=== PATIENT | female | born 2000 | race Caucasian/White ===

== ENCOUNTER 2024-01-30 15:42 | Inpatient (IN) | payer BC, SELFPAY ==
--- NOTE | 2024-01-29 10:36 | ED.GENMED ---
ED Provider Triage
<Tushar Wolf PA-C - Last Filed: 01/29/24 14:43>
-
Patient seen by provider in Triage?: Seen in Triage
Attestation: A medical screening examination has been initiated by a qualified medical provider. Based on the assessment performed at this time, it has been determined that an emergent medical condition may exist and the patient has been informed
that further medical evaluation and possible additional diagnostic testing may be needed.
HPI: 23-year-old female presenting to the emergency department for evaluation of 1 to 2 months of gradually worsening abdominal pain, worse with food consumption stating pain will usually start minutes afterwards described to be a cramping sensation
across her abdomen radiating up through the right side of her abdomen accompanied with some nausea. [place] or fatty foods seem to be a little bit worse. Does also note some diarrhea with this. Has yet to have any examination or workup. Labs and
ultrasound of the abdomen ordered. Patient otherwise stable.
GENERAL: Alert , in no apparent distress
EYE: No visual abnormalities.
NECK: Trachea midline
ENT: No visible abnormalities.
LUNGS: No acute respiratory distress
NEUROLOGICAL: Alert and oriented
SKIN: Skin intact. No visible changes.
MUSCULOSKELETAL: Moving extremities normally
PSYCH: Normal and appropriate interaction.
This is a medical evaluation conducted in person to initiate diagnostic evaluation and provide initial therapeutics. Please see further documentation by the treating clinician.
History of Present Illness
<Tushar Wolf PA-C - Last Filed: 01/29/24 14:43>
General
Chief Complaint: Abdominal Pain
Time Seen by Provider: 01/29/24 11:36
<Tyler Reddy MD - Last Filed: 01/29/24 14:58>
General
Source: patient and family (Mother)
Exam Limitations: none
Nursing documentation reviewed up to this point in time: agreed with
History of Present Illness
History of Present Illness:
23-year-old female with no reported chronic medical issues presents to the emergency room with her mother for evaluation of abdominal pain. Patient reports onset of symptoms about a month ago and they have been intermittent since that time but she
says essentially daily. She reports pain is triggered by meals and then will last for hours at a time before resolving. She reports pain starts in the epigastrium and radiates towards the right upper quadrant and flank. Other than food no other
triggering factors noted. Occasional relief with Tums. She denies any vomiting but does have some nausea associated with it. She reports occasional loose stools. She says symptoms have been escalating and that last night pain was 10/10 and
unremitting and so she finally came to the ER to be evaluated. She says pain has essentially resolved by the time of my assessment. She has not had any urinary symptoms�denies dysuria, hematuria, change in urinary frequency. She denies any
vaginal bleeding or discharge. Last menstrual period ended 01/19/2024 and was normal. She denies similar symptoms in the past and denies surgical history. Mother is very concerned because patient has lost reportedly 10+ pounds over the past month
due to inability to eat because of symptoms.
Review of Systems
<Tyler Reddy MD - Last Filed: 01/29/24 14:58>
Review of Systems
All Other Systems: ROS reviewed and negative except as documented in HPI and ROS
Constitutional: Denies fever
Respiratory: Denies trouble breathing
Cardiac: Denies chest pain
ABD/GI: Reports abdominal pain, nausea and diarrhea; Denies vomiting
: Denies dysuria, frequency, flank pain or bleeding
Musculoskeletal: Denies neck pain or back pain
Neurological: Denies dizzy or headache
Phy Exam
<Tyler Reddy MD - Last Filed: 01/29/24 14:58>
Physical Exam
Physical Exam:
General: Awake, alert, oriented x3; no acute distress
Head: Normocephalic, atraumatic
Eyes: Conjunctiva normal, sclera anicteric
Throat: Airway intact, handling secretions
Neck: Trachea midline, supple without meningismus
Lungs: Clear to auscultation bilaterally, no wheezing, rales, rhonchi
Heart: Regular rate and rhythm, no murmurs, gallops, or rubs
Abd: Soft, non distended, minimally tender right upper quadrant
Neuro: No gross deficits
Extremities: Warm and well-perfused
Scores
<Tyler Reddy MD - Last Filed: 01/29/24 14:58>
Heart Failure Risk
Heart Failure Risk Score: Not Applicable
Heart Score for Chest Pain Patients
STEMI patient?: Not applicable
Withdrawal Assessment of Alcohol
Withdrawal Assessment Completed?: Not applicable
Course
<Tushar Wolf PA-C - Last Filed: 01/29/24 14:43>
Orders/Labs/Results
Orders:
Orders
01/29/24 10:37
Test Result ONCE
US Abdomen Complete/Upper Urgent
Comment:
Reason For Exam: 1-2 months, abd pain, RUQ
01/29/24 10:45
Complete Blood Count/With Diff Urgent
Comprehensive Metabolic Panel Urgent
HCG, Serum Qualitative Screen Urgent
Lipase Urgent
01/29/24 11:09
Urinalysis Reflex To Culture Urgent
Date Specimen was Collected: 01/29/24
Time Specimen was Collected: 11:08
01/29/24 14:48
Mrcp Without MR [MR Mrcp Without] Routine
Comment:
Reason For Exam: RUQ pain, abnormal LFTs
Recent pill cam endoscopy?: No
01/29/24 14:51
Pantoprazole [Protonix IV] 40 mg IV NOW STA
Abnormal Lab Results
01/29/24
10:45
WBC 12.0 H 10^3/uL
(4.8-10.8)
RBC 4.16 L 10^6/uL
(4.20-5.40)
Absolute Neuts (auto) 9.0 H 10^3/uL
(1.4-6.5)
Absolute Monos (auto) 0.7 H 10^3/uL
(0.1-0.6)
Lymphocytes % 14.3 L %
(20.5-51.1)
AST 142 H U/L
(14-36)
ALT 141 H U/L
(0-35)
Alkaline Phosphatase 524 H U/L
(38-126)
01/29/24 10:45
01/29/24 10:45
Vital Signs
Initial and Last Documented VS:
Initial Vital Signs
Temp Pulse Resp BP Pulse Ox
36.8 C 88 16 130/93 100
01/29/24 10:37 01/29/24 10:37 01/29/24 10:37 01/29/24 10:37 01/29/24 10:37
Last Documented Vital Signs
Temp Pulse Resp BP Pulse Ox
36.8 C 63 18 100/51 99
01/29/24 14:30 01/29/24 14:30 01/29/24 14:30 01/29/24 14:30 01/29/24 14:30
<Tyler Reddy MD - Last Filed: 01/29/24 14:58>
Orders/Labs/Results
Orders:
Orders
01/29/24 10:37
Test Result ONCE
US Abdomen Complete/Upper Urgent
Comment:
Reason For Exam: 1-2 months, abd pain, RUQ
01/29/24 10:45
Complete Blood Count/With Diff Urgent
Comprehensive Metabolic Panel Urgent
HCG, Serum Qualitative Screen Urgent
Lipase Urgent
01/29/24 11:09
Urinalysis Reflex To Culture Urgent
Date Specimen was Collected: 01/29/24
Time Specimen was Collected: 11:08
01/29/24 14:48
Mrcp Without MR [MR Mrcp Without] Routine
Comment:
Reason For Exam: RUQ pain, abnormal LFTs
Recent pill cam endoscopy?: No
01/29/24 14:51
Pantoprazole [Protonix IV] 40 mg IV NOW STA
Abnormal Lab Results
01/29/24
10:45
WBC 12.0 H 10^3/uL
(4.8-10.8)
RBC 4.16 L 10^6/uL
(4.20-5.40)
Absolute Neuts (auto) 9.0 H 10^3/uL
(1.4-6.5)
Absolute Monos (auto) 0.7 H 10^3/uL
(0.1-0.6)
Lymphocytes % 14.3 L %
(20.5-51.1)
AST 142 H U/L
(14-36)
ALT 141 H U/L
(0-35)
Alkaline Phosphatase 524 H U/L
(38-126)
01/29/24 10:45
01/29/24 10:45
Vital Signs
Initial and Last Documented VS:
Initial Vital Signs
Temp Pulse Resp BP Pulse Ox
36.8 C 88 16 130/93 100
01/29/24 10:37 01/29/24 10:37 01/29/24 10:37 01/29/24 10:37 01/29/24 10:37
Last Documented Vital Signs
Temp Pulse Resp BP Pulse Ox
36.8 C 63 18 100/51 99
01/29/24 14:30 01/29/24 14:30 01/29/24 14:30 01/29/24 14:30 01/29/24 14:30
<Tyler Reddy MD - Last Filed: 01/29/24 14:58>
MDM/Problems Addressed
Differential Diagnosis Includes:
Cholelithiasis, choledocholithiasis, cholecystitis, hepatitis, nephrolithiasis, UTI, PUD
MDM/Problems Addressed:
23-year-old female presents for evaluation of worsening postprandial abdominal pain for the past month associate with weight loss. Vitals and exam as above. Labs were sent off at triage including CBC which shows marginal leukocytosis to 12. CMP
shows abnormal LFTs with AST/ALT 142/141 and alk phos of 524. T. bili is normal. Lipase is normal. hCG negative. Urinalysis no infection. She was sent for an upper abdominal ultrasound�on my review question some shadowing at the gallbladder
neck but no CBD dilation. Awaiting read. Continue to monitor.
Radiology report reviewed�ultrasound read is negative for cholelithiasis or other acute pathology. Nevertheless given her escalating symptoms and weight loss and abnormal LFTs I discussed the case with Briana plan for MRCP. Treat with PPI for
now. Will admit for continued workup of her symptoms. Case discussed with hospitalist for admission.
<Tyler Reddy MD - Last Filed: 01/29/24 14:58>
*Radiology
Radiology exam reviewed: preliminary read by ED provider and radiology read reviewed
*Pulse Oximetry
Patient hypoxic: no
*Critical Care Note
Total Time (30-74mins, 75-104mins- exclusive of procedures): Not Applicable
Data Reviewed
Source: patient and family (Mother)
<Tyler Reddy MD - Last Filed: 01/29/24 14:58>
Patient Management
Discussion with other providers: Hospitalist (Discussed with hospitalist), Window Glass Installer (Discussed with gastroenterology) and Radiologist (Discussed with radiologist)
Escalation/DeEscalation of care consider admission/obs:
Admission indicated
ED Attending Note
<Tushar Wolf PA-C - Last Filed: 01/29/24 14:43>
-
Portions of this chart may have been created with voice recognition software.� Occasional wrong word or��sound alike� substitutions may have occurred due to the inherent limitations of voice recognition software.
Discharge Plan
Departure
Patient Disposition: Admit
Date of Disposition: 01/29/24
Time of Disposition: 14:51
Admit to doctor: Edgar
Presentation/result/management discussed w/ accepting MD/DO: Hospitalist
Discharge Problem:
Postprandial abdominal pain in right upper quadrant, Weight loss, Abnormal LFTs
Referrals:
Nika Stern MD [Family Provider] -
Interventions
Interventions:
*Risk Screen - Suicide Last Done: 01/29/24 10:37
*General Assessment Last Done: 01/29/24 10:37
*ED COVID-19 Vaccine History Last Done: 01/29/24 10:37
Discharge Date and Time
Print Language: CROATIAN
[2024-01-29 10:37] VITALS: BP 130/93
[2024-01-29 10:58] LABS: % Basophils 0.6 % (0-2); % Eosinophils 3.5 % (0-6); % Immature Granulocytes 0.3 % (0-0.5); % Lymphocytes 14.3 % (20.5-51.1); % Monocytes 6.2 % (1.7-9.3); % Neutrophils 75.1 % (42.2-75.2); Absolute Basophils 0.1 10^3/uL (0-0.2); Absolute Eosinophils 0.4 10^3/uL (0-0.7); Absolute Lymphocytes 1.7 10^3/uL (1.2-3.4); Absolute Monocytes 0.7 10^3/uL (0.1-0.6); Hematocrit 37.1 % (37.0-47.0); Hemoglobin 12.7 g/dL (12.0-16.0); Mean Corp Hgb Conc. 34.2 g/dL (33.0-37.0); Mean Corpuscular Hgb 30.5 pg (27.0-31.0); Mean Corpuscular Volume 89.2 fL (81.0-99.0); Mean Platelet Volume 9.2 fL (7.4-10.4); Nucleated Red Blood Cells % 0 %; Platelet Count 380 10^3/uL (130-400); Red Blood Cell Count 4.16 10^6/uL (4.20-5.40); Red Cell Dist. Width 13.4 % (11.5-14.5)
[2024-01-29 11:08] LABS: HCG, Serum Qualitative Screen Negative
[2024-01-29 11:13] LABS: ALT (SGPT) 141 U/L (0-35); AST (SGOT) 142 U/L (14-36); Albumin 4.1 g/dl (3.5-5.0); Alkaline Phosphatase 524 U/L (38-126); Blood Urea Nitrogen 10 mg/dl (7-17); Calcium 9.5 mg/dl (8.4-10.2); Carbon Dioxide 29 mmol/L (22-30); Chloride 100 mmol/L (98-107); Glucose 96 mg/dl (70-99); Lipase 29 U/L (23-300); Potassium 3.5 mmol/L (3.5-5.1); Sodium 139 mmol/L (135-145); Total Bilirubin 0.8 mg/dl (0.2-1.3); Total Protein 7.2 g/dl (6.3-8.2); eGFR > 60.00
[2024-01-29 11:21] LABS: Urine Albumin Trace (Neg - Trace); Urine Bilirubin Negative (Negative); Urine Character Slightly Cloudy (Clear); Urine Color Yellow; Urine Glucose Negative (Negative); Urine Ketone Negative (Negative); Urine Leukocyte Negative (Negative); Urine Nitrite Negative (Negative); Urine Occult Blood Negative (Negative); Urine Urobilinogen Negative (Neg - 1+)
[2024-01-29 14:30] VITALS: BP 100/51
[2024-01-29] MEDS: PROTONIX IV 40 MG IV (14:58)
--- NOTE | 2024-01-29 15:15 | HPS.HSE ---
Family Physician
-
Family Physician: Nika Stern
Chief Complaint
-
post meal pain and wt loss
History of Present Illness
23F no significamt PMHx seen at ER:
- for evaluation of 1 to 2 months of gradually worsening abdominal pain,
- worse with few mins after meal especially with fatty food , describedas colic/cramping sensation across her abdomen
- POS radiating up through the right side of abdomen accompanied with some nausea.
- note some diarrhea with this.
- has yet to have any examination or workup.
- Patient otherwise stable.
Medical History
Past Medical History
Past Medical History: Reports None
Past Surgical History: Reports None
Social History
Tobacco: Non-smoker
Alcohol: None
Drug: None
Family History
Family History: Not pertinent
Allergies / Home Medications
Allergies reflects when Allergies were last updated in [employer].
Home Medications with original date entered in [employer]
Allergy/Medication List:
Allergies
Allergy/AdvReac Type Severity Reaction Status Date / Time
No Known Allergies Allergy Verified 01/29/24 10:41
Home Medications
acetaminophen 500 mg tablet (Tylenol Extra Strength) 1,000 mg PO Q6HPRN PRN mild pain 01/29/24
calcium carbonate (Tums) 400 mg PO BIDPRN PRN stomach issues 01/29/24
ferrous sulfate 325 mg (65 mg iron) tablet 325 mg PO DAILY Supplement 01/29/24
therapeutic multivitamin 1 tab PO DAILY Supplement 01/29/24
Review of Systems
-
Constitutional: Reports No Symptoms
EENT: Reports No Symptoms
Respiratory: Reports No Symptoms
Cardiac: Reports No Symptoms
Abdomen/GI: Reports See HPI, Abdominal Pain, Nausea and Diarrhea
: Reports No Symptoms
Musculoskeletal: Reports No Symptoms
Skin: Reports No Symptoms
Neurological: Reports No Symptoms
Endocrine: Reports No Symptoms
Hematologic/Lymphatic: Reports No Symptoms
Psych: Reports No Symptoms
Physical Exam
Vital Signs
Vital Signs
Temp Pulse Resp BP Pulse Ox
98.2 F 63 18 100/51 99
01/29/24 14:30 01/29/24 14:30 01/29/24 14:30 01/29/24 14:30 01/29/24 14:30
Physical Exam
General: Well Developed, Well Nourished and No Apparent Distress
HEENT: NormoCephalic, Moist mucous membranes and Atraumatic
Respiratory: Clear
Cardiac: S1/S2 and Regular Rhythm; No Murmur or Rub
GI: Soft, Non Tender, Non Distended and Normal Bowel Sounds; No Organomegaly
Rectal: Deferred by Provider
Musculoskeletal: No Clubbing, No Cyanosis and No Edema
Skin: No Rash
Neuro: Nonfocal/grossly intact
Laboratory Results
-
01/29/24 10:45
01/29/24 10:45
Laboratory Results
Total Bilirubin 0.8 mg/dl (0.2-1.3) 01/29/24 10:45
AST 142 U/L (14-36) H 01/29/24 10:45
ALT 141 U/L (0-35) H 01/29/24 10:45
Alkaline Phosphatase 524 U/L (38-126) H 01/29/24 10:45
Lipase 29 U/L (23-300) 01/29/24 10:45
Data Reviewed
-
Ultrasound: Report Reviewed by me
Impression/Plan
-
Reviewed VS:
Vital Signs
Temp Pulse Resp BP Pulse Ox
98.2 F 63 18 100/51 99
01/29/24 14:30 01/29/24 14:30 01/29/24 14:30 01/29/24 14:30 01/29/24 14:30
01/29/24 01/29/24
10:45 11:09
WBC 12.0 H
Hgb 12.7
Plt Count 380
Creatinine 0.6
eGFR > 60.00
Total Bilirubin 0.8
AST 142 H
ALT 141 H
Alkaline Phosphatase 524 H
Lipase 29
HCG, Qual Negative
Leukocyte Esterase Rfl Negative
US Abdomen Complete/Upper: Normal
NO PRIOR hospitalist admission:
ASSESSMENT & PLAN
Immediate postprandial colicky abdominal pain especially RUQ
Associated with Weight loss
Associated abnormal LFTs
Normal US
- Trend LFTs
- Clear and ADAT
- MRCP
- Evaluate for GB pathology
- GI consulted
Reported Wt loss ( 12 lbs over 6 weeks)
-check TSH
- await MRCP
DVT Px: SCD
Full code
Obs MS
--- NOTE | 2024-01-29 16:32 | CON.GI ---
Addendum entered and electronically signed by Erinn Banerjee MD 01/30/24 08:45:
I saw and examined the patient.
The TERRA COTTA ROOFER HELPER's note was reviewed and I agree with the note.
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
past 2 months associated with a 12 to 15 pound weight loss also. Pain seems to be mostly worse with spicy foods and fatty foods and lasts for about 3 to 4 hours made worse when she lays down and better when she leans forward. She has not had any
vomiting she also has been having chills for the past 2 weeks. She says that sometimes her stools are dark. She does have occasional reflux and uses antacids as needed. She is also been having intermittent episodes of diarrhea for the past 2
months and prior to that she was to have regular bowel movements. no rectal bleeding. She denies any recent fall while horse riding.
Assessment and plan epigastric and right upper quadrant pain worsened with food intake associated with weight loss and nausea and also has elevated transaminases and alkaline phosphatase on admission. Her MRCP was normal ultrasound was normal.
Differential could be possible peptic ulcer disease or celiac versus biliary dyskinesia( less likely ) versus SMA syndrome or median arcuate ligament syndrome and less likely porphyria. Will schedule her for endoscopy today and take small bowel
biopsies for celiac and gastric biopsies for H. pylori and following that will also schedule her for a CT abdomen and pelvis with oral and IV contrast. She does have intermittent diarrhea so may also need a colonoscopy if symptoms persist can be
done as outpatient. consider HIDA with CCK if above w/u neg and sx are not better. continue PPI
Original Note:
Consultation
-
Date/Time Consultation Requested: 01/29/241629
Date/Time Consultation Performed: 01/29/241629
Requesting Provider: Tyler Reddy MD
Performing Provider: CEDRICK Alexis, Lenin Adams MD
Reason for Consultation: abdominal pain, increased LFT's
Medical History
Chief Complaint / HPI
Chief Complaint: abdominal pain
History of Present Illness:
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 She also admits to occasional loose stools intermitently. On
admission US with noted normal results without GB dilation, thickening or duct dilatation. Liver functions notable for bili 0.8, AST 142, ALT 141, alk phos 524 with normal lipase 29. She report 12 lbs wt loss in 2 months and now only able to
tolerate 1 meal daily. On iron and MVI supplement but no NSAID use and Tylenol use as needed. No other prior work up before Er visit. No hx liver issues, hepatitis in past. No ETOH use.
She admits to GERD, nausea, intermittent fever, and minimal dark urine but denies dysphagia, vomiting, constipation or rectal bleeding. no hx EGD or colonoscopy in past. No recent travel or similar sick contacts.
Past Medical History
Past Medical History: Other (recent GERD, on iron supplement family did not recall hx anemia )
Social History
Tobacco: Non-Smoker
Alcohol: None
Drug: None
Employment: Other (professional horseback rider )
Family History
Family History: Other (Aunt with hx gallbladder problems)
Allergies / Home Medications
Allergy/AdvReac Type Severity Reaction Status Date / Time
No Known Allergies Allergy Verified 01/29/24 10:41
�Medication �Instructions �Recorded
acetaminophen 500 mg tablet 1,000 mg PO Q6HPRN PRN mild pain 01/29/24
(Tylenol Extra Strength)
calcium carbonate (Tums) 400 mg PO BIDPRN PRN stomach issues 01/29/24
ferrous sulfate 325 mg (65 mg 325 mg PO DAILY Supplement 01/29/24
iron) tablet
therapeutic multivitamin 1 tab PO DAILY Supplement 01/29/24
Review of Systems
-
History Source: Patient and Family
Constitutional: Reports Fever and Weight Loss
EENT: Reports No Symptoms
Respiratory: Reports No Symptoms
Cardiac: Reports No Symptoms
Abdomen/GI: Reports Abdominal Pain, Nausea and Diarrhea
: Reports Dark Urine (occasional )
Musculoskeletal: Reports No Symptoms
Skin: Reports No Symptoms
Neurological: Reports Weakness
Endocrine: Reports No Symptoms
Hematologic/Lymphatic: Reports Bruising (on legs but works daily with horses )
Vital Signs
Temp Pulse Resp BP Pulse Ox
98.2 F 63 18 100/51 99
01/29/24 14:30 01/29/24 14:30 01/29/24 14:30 01/29/24 14:30 01/29/24 14:30
Physical Exam
Exam
General: Well Developed, Well Nourished and No Apparent Distress
HEENT: Normocephalic and Anicteric
Respiratory: Clear
Cardiac: Regular Rhythm
Musculoskeletal: No Clubbing and No Cyanosis
Skin: Warm, Dry and Other (bruising on legs )
Neuro: Awake, Alert and AO x 3
Psych: Calm
Results
WBC 12.0 10^3/uL (4.8-10.8) H 01/29/24 10:45
Hgb 12.7 g/dL (12.0-16.0) 01/29/24 10:45
Hct 37.1 % (37.0-47.0) 01/29/24 10:45
MCV 89.2 fL (81.0-99.0) 01/29/24 10:45
Plt Count 380 10^3/uL (130-400) 01/29/24 10:45
Absolute Neuts (auto) 9.0 10^3/uL (1.4-6.5) H 01/29/24 10:45
Sodium 139 mmol/L (135-145) 01/29/24 10:45
Potassium 3.5 mmol/L (3.5-5.1) 01/29/24 10:45
Chloride 100 mmol/L (98-107) 01/29/24 10:45
Carbon Dioxide 29 mmol/L (22-30) 01/29/24 10:45
BUN 10 mg/dl (7-17) 01/29/24 10:45
Creatinine 0.6 mg/dL (0.6-1.0) 01/29/24 10:45
Calcium 9.5 mg/dl (8.4-10.2) 01/29/24 10:45
Total Bilirubin 0.8 mg/dl (0.2-1.3) 01/29/24 10:45
AST 142 U/L (14-36) H 01/29/24 10:45
ALT 141 U/L (0-35) H 01/29/24 10:45
Alkaline Phosphatase 524 U/L (38-126) H 01/29/24 10:45
Lipase 29 U/L (23-300) 01/29/24 10:45
Diagnostic Image Results:
01/29/24 US normal
01/29/24 MRI pending
Prior GI Procedures:
EGD: none
Colonoscopy: none
Assessment / Plan
-
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 On admission US with noted normal results without GB dilation, thickening or duct dilatation.
Liver functions notable for bili 0.8, AST 142, ALT 141, alk phos 524 with normal lipase 29. Pt also noted with nausea, wt loss 12 lbs, and minimal dark urine . No hx hepatitis, liver problems in past. Only supplements iron and MVI. No ETOH use.
-post prandial abdominal pain
-elevated LFT's
-mild leukocytosis/fever
-wt loss
-occasional diarrhea
PLAN:
etiology of symptoms related to biliary colic, CBD stone vs other
US neg for stone or duct dilatation
just completed MRCP await results
if + stone then ERCP and consider surgical eval
if neg consider serologic work up with hepatitis, mono testing and EGD
trend LFT's
if diarrhea noted during admission will add stool studies
updated family at bedside
-
-
Thank you for consultation and allowing me to participate in the patient's care. Please call the vocational counselor GI physician during the after hours with any questions or concerns.
[2024-01-29 18:27] VITALS: BP 81/68
[2024-01-29 19:30] VITALS: BP 111/58
[2024-01-29] MEDS: NSS 1000 IV (20:19)
[2024-01-29 23:26] VITALS: BP 93/58
[2024-01-30 07:00] VITALS: BP 106/51
[2024-01-30 07:34] LABS: Hematocrit 36.2 % (37.0-47.0); Hemoglobin 11.8 g/dL (12.0-16.0); Mean Corp Hgb Conc. 32.6 g/dL (33.0-37.0); Mean Corpuscular Hgb 30.3 pg (27.0-31.0); Mean Corpuscular Volume 92.8 fL (81.0-99.0); Mean Platelet Volume 9.3 fL (7.4-10.4); Platelet Count 361 10^3/uL (130-400); Red Cell Dist. Width 13.5 % (11.5-14.5); White Blood Cell Count 13.4 10^3/uL (4.8-10.8)
[2024-01-30 07:46] LABS: ALT (SGPT) 98 U/L (0-35); AST (SGOT) 62 U/L (14-36); Albumin 3.8 g/dl (3.5-5.0); Alkaline Phosphatase 443 U/L (38-126); Blood Urea Nitrogen 10 mg/dl (7-17); Calcium 9.3 mg/dl (8.4-10.2); Carbon Dioxide 31 mmol/L (22-30); Chloride 100 mmol/L (98-107); Glucose 88 mg/dl (70-99); Potassium 3.5 mmol/L (3.5-5.1); Sodium 139 mmol/L (135-145); Total Bilirubin 0.6 mg/dl (0.2-1.3); Total Protein 6.9 g/dl (6.3-8.2); eGFR > 60.00
[2024-01-30 07:54] LABS: Monotest Positive (Negative)
[2024-01-30 08:18] LABS: TSH 1.02 uIU/ml (0.47-4.68)
[2024-01-30 08:19] LABS: Hepatitis B Surface Antigen Negative (Negative)
[2024-01-30] MEDS: PROTONIX 40 MG PO (08:31)
[2024-01-30 08:37] LABS: Hepatitis B Core Ab, Total Negative (Negative); Hepatitis B Surface Antibody Negative; Hepatitis C Antibody Negative (Negative)
--- NOTE | 2024-01-30 10:35 | WOUNDNOTE ---
[facility] RN NOTE: Reviewed chart and met with patient and her mother. Patient reports injuring her right 4th finger caring for her horse a few weeks ago. The area is slightly edematous with mild erythema and scabbed. Patient reports that last night the
wound was more edematous and drained some purulent fluid. At time of assessment, wound was scabbed and did not drain when palpated. Patient denied pain. Patient and mother requested incision and drainage by this RN. Explained to patient and mother
that I&D would require a surgical consult, which does not appear to be warranted in this case. Plan is to clean wound with Vashe and apply topical antibiotic. Patient and family agreeable and will further discuss with Hospitalist. Dr. Cody
updated and confirmed orders. HORACIO Arias given update. Will continue to follow as needed.
[2024-01-30 11:20] VITALS: BP 106/51; BP 106/56
[2024-01-30 11:21] VITALS: BP 103/60
[2024-01-30 11:30] VITALS: BP 106/56
[2024-01-30] MEDS: OMNIPAQUE 50 ML PO (11:52)
--- NOTE | 2024-01-30 12:29 | W.PN.HOSP.TC ---
Today's Communication/Plan
-
CT of the abdomen and pelvis to evaluate for SMA syndrome
Clear liquid diet
Trend LFT
Assessment / Plan
Assessment / Plan
Impression:
23 years old female presents with postprandial epigastric/right upper quadrant abdominal pain and weight loss.
Leukocytosis
Elevated transaminases.
Monoscreen positive
Plan:
Postprandial epigastric/right upper quadrant abdominal pain with weight loss
Intermittent diarrhea.
Endoscopy 01/29 with normal esophagus, small hiatal hernia, normal duodenum other than mild possible extrinsic compression/luminal narrowing the first portion of duodenum.
Ultrasound and MRCP unrevealing for hepatobiliary pathology.
Biopsy for celiac performed at endoscopy.
Differential diagnosis remains with reasonable concern for SMA syndrome, versus malabsorption including celiac, versus gallbladder dyskinesia.
CT of the abdomen and pelvis with IV and oral contrast to evaluate for SMA syndrome pending.
Consider HIDA scan with CCK.
Currently on clear liquid diet
Follow LFT.
Monoscreen positive. Unknown clinical significance
Clinical presentation not consistent with acute mononucleosis.
Noted with mild leukocytosis with normal monocytes/lymphocyte count.
Trending down transaminases possibly reflective of that
Anticipated Discharge: 24 - 48 hours
Subjective/Interval History
-
Date of Service: January 30, 2024
Objective Data
-
Labs:
Laboratory Results
01/30/24
07:05
WBC 13.4 H
Hgb 11.8 L
Hct 36.2 L
Plt Count 361
Sodium 139
Potassium 3.5
Chloride 100
Carbon Dioxide 31 H
BUN 10
Creatinine 0.6
Glucose 88
Calcium 9.3
Total Bilirubin 0.6
AST 62 H
ALT 98 H
Alkaline Phosphatase 443 H
Vital Signs:
Vital Signs
Temp Pulse Resp BP Pulse Ox
97.6 F 65 17 106/56 100
01/30/24 11:35 01/30/24 11:30 01/30/24 11:30 01/30/24 11:30 01/30/24 11:30
Physical Exam
-
General: Well Developed and No Apparent Distress
HEENT: Normocephalic, Atraumatic and Moist Mucous Membranes
Respiratory: Clear to Auscultation
Cardiac: Regular Rhythm and S1/S2; Negative Murmur, Rub or Gallop
GI: Soft, Nontender, Nondistended and Normal Bowel Sounds; Negative Organomegaly
Rectal: Deferred by Provider
Musculoskeletal: No Clubbing, No Cyanosis and No Edema
Skin: Negative Rash
Neuro: Nonfocal/Grossly Intact
--- NOTE | 2024-01-30 14:45 | WOUNDNOTE ---
RIGHT 4th FINGER
[2024-01-30 15:00] VITALS: BP 112/55
--- NOTE | 2024-01-30 15:07 | CM ---
analytics senior manager reviewed patient's chart and patient was admitted under OBS, OBS letter completed and signed. Nick lives with her mother, patient's father , nick is independent with adl's and ambulation, no dme, patient drives, patient to
return to home with her mother when stable, no needs.
PCP: Nika Seaman
Pharmacy [facility] in [place]
Plan; Home when stable, no needs.
--- NOTE | 2024-01-30 18:05 | W.DS.TRANS ---
DC Summary - [employer]
-
Discharge Instructions:
Discharge Diagnosis/Procedures SMA syndrome
Diet Regular
Instructions:
Stand-Alone Forms:
Changes to Home Medications: No
Discharge Medications:
DC Medications w/original date entered in [facility]
acetaminophen 500 mg tablet (Tylenol Extra Strength) 1,000 mg PO Q6HPRN PRN mild pain 01/29/24
calcium carbonate (Tums) 400 mg PO BIDPRN PRN stomach issues 01/29/24
ferrous sulfate 325 mg (65 mg iron) tablet 325 mg PO DAILY Supplement 01/29/24
therapeutic multivitamin 1 tab PO DAILY Supplement 01/29/24
Home Medication Changes
Pending Results: No
== END 2024-01-30 18:13 | disposition home or self-care (01) | DRG 395 ==
LOC: 4 WEST ACU 15:42
PROVIDERS: Physician Assistant Medical; ADMITTING PHYSICIAN Internal Medicine; ATTENDING PHYSICIAN Internal Medicine; EMERGENCY PHYSICIAN Emergency Medicine; FAMILY PHYSICIAN Family Medicine; OTHER PHYSICIAN Internal Medicine Gastroenterology
PROC: 0DB98ZX Excision of Duodenum, Via Natural or Artificial Opening Endoscopic, Diagnostic (ICD-10-PCS; 2024-01-30)
PROC: 0DB78ZX Excision of Stomach, Pylorus, Via Natural or Artificial Opening Endoscopic, Diagnostic (ICD-10-PCS; 2024-01-30)
DX: K55.1 Chronic vascular disorders of intestine (principal); R63.4 Abnormal weight loss; K21.9 Gastro-esophageal reflux disease without esophagitis; D72.829 Elevated white blood cell count, unspecified; R50.9 Fever, unspecified; K44.9 Diaphragmatic hernia without obstruction or gangrene; R68.81 Early satiety; R74.01 Elevation of levels of liver transaminase levels
CPT/HCPCS: 88305; 74177; 74181; 76700; 80053; 81003; 83690; 84443; 84703; 85025; 85027; 86308; 86704; 86706; 86803; 87340; 88342; 96374; 99285; Q9967